=== PATIENT | male | born 1955 | race Caucasian/White ===

== ENCOUNTER 2024-05-11 06:46 | Day surgery (SDC) | payer OTHER ==
[~2024-05-11] VITALS: Ht 182.9 cm; Wt 84.4 kg
[2024-05-11] VITALS (15 sets, daily range): BP systolic 95–151; BP diastolic 50–88
[~2024-05-11 06:46] MED LIST: AMLO5; FAMO40; NS 500 ML IV SCH
[2024-05-11] MEDS ORDERED: propofoL 20 ML IV ONE (07:16)
--- NOTE | 2024-05-11 07:22 | NUR ---
05/11/24 0722 Candice Maher CONFIRMED AND REVIEWED H&P, MEDCICATIONS, ALLERGIES, MEDICAL HISTORY, RESPIRATORY HISTORY, VITAL SIGNS, 3-LEAD EKG, CONSENTS, AND PHYSICIAN ORDERS. PATIENT CONFIRMS NPO STATUS AND AGREES WITH SCHEDULED PROCEDURE. MONITOR INTACT WITH CONTINUOUS PULSE OXIMETRY, CAPNOGRAPHY, 3-LEAD EKG, INTERMITTENT BP. SUPPLEMENTAL O2 TO BE TITRATED THROUGHOUT PROCEDURE TO MAINTAIN O2 SATURATION ABOVE 90%. PATIENT DETERMINED TO BE ASA APPROPRIATE FOR PROPOFOL SEDATION PRIOR TO START OF PROCEDURE BY DR. BRITT
--- NOTE | 2024-05-11 09:03 | NUR ---
Patient up to Ambulate independently. Gait steady. Discharge instructions reviewed with patient. Patient verbalizes understanding. Copy given to patient to take home. Patient States Post-Procedure ride home has been arranged. Discharged via wheelchair to private car for ride home.
== END 2024-05-11 09:02 | disposition home or self-care (01) ==
LOC: ORSCMMR 06:46 → ORD 08:00 → ORSCMMR 09:02
PROVIDERS: Internal Medicine Gastroenterology
PROC: 0DBL8ZX Excision of Transverse Colon, Via Natural or Artificial Opening Endoscopic, Diagnostic (ICD-10-PCS; principal; 2024-05-11 08:00)
DX: Z12.11 Encounter for screening for malignant neoplasm of colon (principal); Z86.0101 Personal history of adenomatous and serrated colon polyps; D12.3 Benign neoplasm of transverse colon; I10 Essential (primary) hypertension; K21.9 Gastro-esophageal reflux disease without esophagitis; Z87.891 Personal history of nicotine dependence; Z79.899 Other long term (current) drug therapy
CPT/HCPCS: 88305; J2704; J7040